=== PATIENT | female | born 2005 | race Caucasian/White ===

== ENCOUNTER 2023-07-26 14:59 | Outpatient (REF) | payer BC, SELFPAY | END 2023-07-26 15:00 | disposition home or self-care (01) | LOC: HO.MRI 14:59 | PROVIDERS: Visit Provider Family Medicine Sports Medicine | DX: S62.502D Fracture of unspecified phalanx of left thumb, subsequent encounter for fracture with routine healing (principal) | CPT/HCPCS: 73218 ==

== ENCOUNTER 2023-09-30 15:03 | Outpatient (REF) | payer BC, OTHER, SELFPAY ==
--- NOTE | ~2023-09-30 | MR_ITS ---
EXAMINATION: MR ANKLE WITHOUT CONTRAST, LEFT CLINICAL INFORMATION: Left ankle pain. COMPARISON: None available. TECHNIQUE: MRI of the ankle was performed using routine sequences on a high-field scanner. FINDINGS: ACHILLES TENDON: Normal. OTHER TENDONS: Intact. Peroneal tendons are probably situated at the lateral malleolus without subluxation. Superior peroneal retinaculum appears intact. No tenosynovitis. LIGAMENTS: The anterior talofibular ligament appears relatively diminutive, potentially the result of an old sprain. No tears. The posterior talofibular ligament is intact. Normal calcaneofibular ligament. Normal anterior and posterior tibiofibular ligament. The deltoid and spring ligaments are intact. BONE AND ARTICULAR CARTILAGE: Normal marrow signal. Cartilage is well preserved. No talar osteochondral lesions. JOINT FLUID AND SOFT TISSUES: No joint effusion. Subcutaneous soft tissues are normal. PLANTAR FASCIA: Normal. SINUS TARSI AND TARSAL TUNNEL: Normal. MR/MR ankle LT wo con IMPRESSION: Diminutive anterior talofibular ligament, potentially the result of an old sprain. No tears. Otherwise normal MRI of the ankle.
== END 2023-09-30 15:04 | disposition home or self-care (01) ==
LOC: HO.MRI 15:03
PROVIDERS: Visit Provider Family Medicine Sports Medicine
DX: M25.572 Pain in left ankle and joints of left foot (principal)
CPT/HCPCS: 73721

== ENCOUNTER 2025-01-09 09:51 | Outpatient (REF) | payer OTHER, SELFPAY ==
--- NOTE | 2025-01-09 10:08 | EMG_ITS ---
Left tibial and peroneal motor studies were performed. Left superficial peroneal, sural, and median and lateral mixed plantar sensory studies were performed. Tibial H-reflex was obtained and paraspinal and some leg muscles were tested with a needle. IMPRESSION: Mild axonal sensory motor peripheral neuropathy. MD LUANN Lynn/ALFRED / [id number]
--- OUTSIDE RECORDS SUMMARY | 2025-01-09 11:28 | XMS_ITS ---
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 confirmed Problem Pes cavus (71153814) Pes cavus (Q66.7) Active confirmed Vital Signs Height 5'6 in 09/07/2023 Weight 135 lbs 09/07/2023 BMI 21.79 kg/m2 09/07/2023 BMI Percentile 34.99 % 09/07/2023 Encounters Encounter Location Date Provider Diagnosis [facility] [address] [place] [address] [place] [id number] 09/07/2023 AMILCAR HURST Left foot pain M79.672 ; Sinus tarsi syndrome, 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 extensory digitorum longus tendonitis. Plan: We discussed custom molded orthotics with a first ray cutout and a possible reverse Pool's Extension and a lateral wedge. We discussed surgery in the form of a calcaneal lateral slide osteotomy and a first ray dorsiflexory osteotomy. The patient is to decrease activities. The patient is to stretch as instructed. We discussed proper shoe gear. 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 09/07/2023 Metatarsalgia, left foot (ICD-10 - M77.42) 09/07/2023 Equinus contracture of ankle (ICD-10 - M24.573) 09/07/2023 Left ankle pain, unspecified chronicity (ICD-10 - M25.572) 09/07/2023 Other Radiographs: Three views of the Left Ankle weightbearing AP/Lat/Mortise were taken and reviewed with the patient: There is no sign of fracture to the Tibia There is no sign of fracture to the Fibula There is no sign of fracture to the Talus There is no sign of fracture to the Calcaneus There is no sign of fracture to the Navicula There is no sign of fracture to the Cuboid There is no sign of fracture to the Fifth Metatarsal Soft tissue is Within Normal Limits Normal bone density for age group Discussion: No sign of fracture or dislocation. on lateral view there is a significant increase in the calcaneal inclination angle. Plan Of Treatment Treatment Notes Assessment Notes Left foot pain Foot Pain: Care Inst ructions material was printed Sinus tarsi syndrome, left Assessment: Left Foot Pes Cavus leading to ankle pain, instability Sinus tarsi syndrom-we discussed a cortisone injection. extensory digitorum longus tendonitis. Plan: We discussed custom molded orthotics with a first ray cutout and a possible reverse Pool's Extension and a lateral wedge. We discussed surgery in the form of a calcaneal lateral slide osteotomy and a first ray dorsiflexory osteotomy. The patient is to decrease activities. The patient is to stretch as instructed. We discussed proper shoe gear. The patient is to follow up with her athletic training department/physical therapy for dry needling of the extendor digitorum longus. Other Radiographs: Three views of the Left Ankle weightbearing AP/Lat/Mortise were taken and reviewed with the patient: There is no sign of fracture to the Tibia There is no sign of fracture to the Fibula There is no sign of fracture to the Talus There is no sign of fracture to the Calcaneus There is no sign of fracture to the Navicula There is no sign of fracture to the Cuboid There is no sign of fracture to the Fifth Metatarsal Soft tissue is Within Normal Limits Normal bone density for age group Discussion: No sign of fracture or dislocation. on lateral view there is a significant increase in the calcaneal inclination angle. Next Appt Details Follow Up: prn, Reason: Progress Notes * Zoë FERNANDEZeDOB:2005 (19 yo M)Acc No.[id number]:09/07/2023 Progress Notes Patient:?Maria Isabel FERNANDEZ Provider:?Amilcar Hurst DPM :2005???Age:17 Y???Sex:Male Josue e:09/07/2023 Address:[address] [place], [place] [id number] Subjective: * Chief Complaints: * ???1. Ankle. * HPI: ???Constitutional:? Maria Isabel presents today with painful left foot and ankle. 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 She has a history of spraining her ankle, and she is currently in a cam walker. She is improving. * ROS:?General/Constitutional:?Overall health?Good ?.?Change in appetite?denies.?Fatigue?denies.?Headache?denies.?Weight gain?denies.?Weight loss?denies.?Allergy/Immunology:?Cough?denies.?Watery eyes?denies.?Wheezing?denies.?Ophthalmologic:?Blurry vision?denies.?Discharge?denies.?Dry eye?denies.?Eye Pain?denies.?ENT:?Blocked ear?denies.?Dry mouth?denies.?Ear pain?denies.?Respiratory:?Chest pain?denies.?Cough?denies.?Shortness of breath?denies.?Wheezing?denies.?Cardiovascular:?Chest pain?denies.?Chest pain with exertion?denies.?Dizziness?denies.?Gastrointestinal:?Abdominal pain?denies.?Decreased appetite?denies.?Genitourinary:?Abdominal pain/swelling?denies.?Blood in urine?denies.?Musculoskeletal:?Back problems?denies.?Admits?Swollen joints.?Patient reports eye pain and eye swelling. * Active Problem List M24.573 Equinus contracture of ankle Modified On:09/07/2023W/U Status:confirmed Q66.7 Pes cavus Modified On:09/07/2023W/U Status:confirmed * Medical History:?Medical His tory Verified. * Surgical History:?Denies Pas t Surgical History. * Hospitalization/Major Diagno stic Procedure:?Denies Past Hospitalization. * Family History:?Non-Contribu tory.? * Social History:?never smoked, doesn't drink, single. * Medications:?None * Allergies:?N.K.D.A. Objective: * Vitals:?Ht: 5'6 , Wt:135lbs, BMI:21.79Index, Ht-cm: 167.64 cm, Wt-k.23 kg, Ht %: 10.07 %, Wt %: 17.9 %, BMI %: 34.99 %. * Examination: ???General Examination: ???Left foot displays an increase in the medial longitudinal arch height with tenderness at the calcaneus, first metatarsal head and fifth metatarsal head. There is a plantarflexed first metatarsal. There is positive Equinus. There is no ecchymosis. There is no edema. The plantar fascia is taut. The calcaneus does not eric pass neutral. there is tenderness along the digitorum longus and at the sinus tarsi. PSYCHIATRIC Gen/Psych: Patient is alert and orientated to person; place and time Patient is able to recall recent and remote memories Patient's affect is normal CONSTITUTIONAL: GENERAL APPEARANCE: Well-developed and well nourished Patient is able to communicate in a normal quality voice CARDIOVASCULAR: LEFT LOWER EXTREMITY: Dorsalis Pedis artery left- palpable 2/4 Posterior Tibial artery left-palpable 2/4 Temperature is within normal limits. Capillary fill time is within normal limits Positive pedal hair RIGHT LOWER EXTREMITY: Dorsalis Pedis artery right- palpable 2/4 Posterior Tibial artery right-palpable 2/4 Temperature is within normal limits. Capillary fill time is within normal limits Positive pedal hair NEUROLOGICAL: The patient has normal judgement and insight LEFT LOWER EXTREMITY: Protective sensation grossly intact left foot Proprioception is intact 5/5 muscle strength in all 4 quadrants left foot RIGHT LOWER EXTREMITY: Protective sensation grossly intact right foot Proprioception is intact grossly 5/5 muscle strength in all 4 quadrants right foot DERMATOLOGICAL: LEFT LOWER EXTREMITY: Color, texture and turgor is within normal limits RIGHT LOWER EXTREMITY: Color, texture and turgor is within normal limits. Assessment: * Assessment: 1.?Sinus tarsi syndrome, lef t - M25.572 (Primary)???2.?Left foot pain - M79.672???3.?Metatarsalgia, left foot - M77.42???4.?Equinus contracture of ankle - M24.573???5.?Left ankle pain, unspecified chronicity - M25.572??? Plan: * Treatment: 2.?Left foot pain? Notes: Foot Pain: Care Instructions material was printed?? 3.?Others? Notes:Radiographs: Threeviews of the Left Ankle weightbearing AP/Lat/Mortise were taken and reviewedwith the patient: There is no sign of fracture to the Tibia There is no sign of fracture to the Fibula There is no sign of fracture to the Talus There is no sign of fracture to the Calcaneus There is no sign of fracture to the Navicula There is no sign of fracture to the Cuboid There is no sign of fracture to the Fifth Metatarsal Soft tissue is Within Normal Limits Normal bone density for age group Discussion:No sign of fracture or dislocation. on lateral view there is a significant increase in the calcaneal inclination angle. ?? * Procedure Codes:?57749 ankle x-rays 3 views, Modifiers: lt * Follow Up:?prn * Billing Information: * Visit Code:? 79999 Initial visit detailed. * Procedure Codes:? 54425 ankle x-rays 3 views. Modifiers: lt * Electronic signature of HORACIO Harman HURST DPM on 01/09/2025 at 11:28 AM EDT Sign off status: Pending * Provider:?Amilcar Hurst DPM Date:?2022 Generated for Kaiden mcclellan/Xiomy/eTransmitting on:?01/09/2025 11:28 AM EDT History and Physical Notes * Examination Category Sub-Category Detail Notes Category Not es General Examination Left foot displays an increase in the medial longitudinal arch height with tenderness at the calcaneus, first metatarsal head and fifth metatarsal head. There is a plantarflexed first metatarsal. There is positive Equinus. There is no ecchymosis. There is no edema. The plantar fascia is taut. The calcaneus does not eric pass neutral. there is tenderness along the digitorum longus and at the sinus tarsi. PSYCHIATRIC Gen/Psych: Patient is alert and orientated to person; place and time Patient is able to recall recent and remote memories Patient's affect is normal CONSTITUTIONAL: GENERAL APPEARANCE: Well-developed and well nourished Patient is able to communicate in a normal quality voice CARDIOVASCULAR: LEFT LOWER EXTREMITY: Dorsalis Pedis artery left- palpable 2/4 Posterior Tibial artery left-palpable 2/4 Temperature is within normal limits. Capillary fill time is within normal limits Positive pedal hair RIGHT LOWER EXTREMITY: Dorsalis Pedis artery right- palpable 2/4 Posterior Tibial artery right-palpable 2/4 Temperature is within normal limits. Capillary fill time is within normal limits Positive pedal hair NEUROLOGICAL: The patient has normal judgement and insight LEFT LOWER EXTREMITY: Protective sensation grossly intact left foot Proprioception is intact 5/5 muscle strength in all 4 quadrants left foot RIGHT LOWER EXTREMITY: Protective sensation grossly intact right foot Proprioception is intact grossly 5/5 muscle strength in all 4 quadrants right foot DERMATOLOGICAL: LEFT LOWER EXTREMITY: Color, texture and turgor is within normal limits RIGHT LOWER EXTREMITY: Color, texture and turgor is within normal limits
--- OUTSIDE RECORDS SUMMARY | 2025-01-09 11:28 | XMS_ITS | Encounter Summary ---
Author Organization [facility] Address [address] [facility] [place] [address] Care Team Providers Care Rib Cloth Knitter Name Role Phone Indio Gray DO Primary Care Provide r Encounter Details Date Type Department Care Team (Late st Contact Info) Description 02/04/2024 Orders Only [facility] [address] [facility] [place] [id number] Tae Calderon PA [address] [place] [address] Social History Tobacco Use Types Packs/Day Years Used Date Smoking Tobacco: Never Smokeless Tobacco: Never Alcohol Use Standard Drinks/Week Comments Never 0 (1 standard drink = 0.6 oz pur e alcohol) Comments No Sex and Gender Information Value Date Recorded Sex Assigned at Not on file Legal Sex Female 1:00 PM EDT Gender Identity Not on file Sexual Orientation Not on file documented as of this encounter Plan of Treatment Not on file documented as of this encounter Visit Diagnoses Not on filedocumented in this encounter Care Teams Rib Cloth Knitter Relationship Specialty Start Date End Date Indio Gray DO [address] [place] [id number] PCP - General Pediatrics 01/14/21 documented as of this encounter
--- OUTSIDE RECORDS SUMMARY | 2025-01-09 11:28 | XMS_ITS | Clinical Summary ---
Author Organization [facility] Address [address] [place] [address] Care Team Providers Care Shell Press Operator Name Role Phone Ranjit Grayir Primary Care Provide r Allergies No known active allergies Medications ondansetron (Zofran) 4 mg tabletIndications:A ftercare following surgery of the musculoskeletal system Take 1 tablet (4 mg total) by mouth every 6 (six) hours if needed for nausea or vomiting for up to 20 doses. 20 tablet 4 Active apixaban (Eliquis) 2.5 mg tablet Take 1 tablet (2.5 mg total) by mouth 2 (two) times a day. 60 tablet 4 Active Active Problems Problem Noted Date Diagnosed Date Aftercare following surgery of the musculoskelet al system 04/18/2024 Resolved Problems Problem Noted Date Diagnosed Date Resolved Date Left ankle instability 03/06/202404/18 Encounters Date Type Department Care Team Description 10/30/2024 8:30 AM EST Office Visit [facility] in affiliation [place] [id number] Preston Lucas DPM Neuritis of left lower extremity (Primary Dx) from Last 3 Months Immunizations Immunization Administration Dates Next Due DTaP 03/04/2009, 5,05/30/2004,03/14,01/14/2004 HPV, 9-Valent Vaccine 05/25/2018 HPV, Quadrivalent 01/09/2017 Hep A, 2 Dose 05/25/2018 Hepatitis A, Adult 01/09/2017 Hepatitis B 08/25/2004,2003,2003 HiB 04/10/2005, 4,03/14/2004,01/13 IPV 03/04/2009, 5,03/11/2004,01/13 Influenza Injectable Quadriv alent, Preservative Free 09/09/2021,08/24/2020 Influenza, Unspecified 09/28/2019 MMR 11/14/2007,11/11/2004 Meningococcal B Vaccine, Ful ly Recombinant 04/13/2022 Meningococcal Conjugate 04/13/2022,05/20/2015 Pfizer SARS-CoV-2 Vaccination 02/14/2021, 021 Pneumococcal Conjugate 13-Valent 005,05/30/2004,03/14/2004,01/13 Tdap 05/20/2015 Varicella 11/14/2007,11/11/2004 Social History Tobacco Use Types Packs/Day Years Used Date Smoking Tobacco: Never Smokeless Tobacco: Never Tobacco Cessation:Counseling Given: Not Answered Alcohol Use Standard Drinks/Week Comments Never 0 (1 standard drink = 0.6 oz pur e alcohol) Comments No Sex and Gender Information Value Date Recorded Sex Assigned at Not on file Legal Sex Female 1:00 PM EDT Gender Identity Not on file Sexual Orientation Not on file Last Filed Vital Signs Vital Sign Reading Time Taken Comments Blood Pressure 115/74 02/04/2024 3:55 PM EDT Pulse 85 02/04/2024 4:00 PM EDT Temperature 36.8 ??C (98.2 ??F) 02/04/2024 3:35 PM ED T Respiratory Rate 16 02/04/2024 3:55 PM EDT Oxygen Saturation 96% 02/04/2024 4:00 PM EDT Inhaled Oxygen Concentration - - Weight 69.3 kg (152 lb 12.8 oz) 024 12:30 PM EDT Height 170.2 cm (5' 7 ) 02/04/2024 12:3 0 PM EDT Body Mass Index 23.93 02/04/2024 12:30 PM EDT Plan of Treatment Health Maintenance Due Date Last Done Comments Depression Screening 2015 HPV Vaccines (2 - 2-dose series) 07/12/2017 01/09/2017 COVID-19 Vaccine ( season) 2024 11/12/2021, 02/14/2021, 01/24/2021 Influenza Vaccine (#1) 2024 , 08/24/2020, 09/28/2019 DTaP,Tdap,and Td Vaccines (7 - Td or Tdap) 05/20/2025 05/20/2015, 03/04/2009, 04/12/2005, Additional history exists RSV Vaccines (1 - 1-dose 75+ series) 2078 Hepatitis B Vaccines Completed 08/25/2004, 2003, 2003 HIB Vaccines Completed 04/10/2005, 12/2003, 03/14/2004, Additional history exists Pneumococcal Vaccine Completed 04/10/2005, 05/30/2004, 03/14/2004, Additional history exists MMR Vaccines Completed 11/14/2007, 11/11/2004 Varicella Vaccines Completed 11/14/2007, 11/11/2004 IPV Vaccines Completed 03/04/2009, 03/19, 03/11/2004, Additional history exists Hepatitis A Vaccines Completed 05/25/2018, 01/09/2017, 01/09/2017 Meningococcal Vaccine Aged Out 04/13/2022, 015 No longer eligible based on patient's age to complete this topic Medical Devices Implanted Type Area Bark Peeler Device Identifier Shelf Expiration Date Model / Serial / Lot [place] Suture Arthroscopy Swivelock Latex Free Biocomposite Vented Closed Eyelet Sterile 15.8 X 3.5mm - [id number] Implanted:Qty: 2 on 02/04/2024 by Preston Lucas DPM at [facility] Left: Ankle ARTHREX 12/15/2025 [id number] / / [id number] Insurance UNIDENTIFIED INS UNIDENTIFIED INS Care Teams Shell Press Operator Relationship Specialty Start Date End Date Indio Gray DO [address] [place] [id number] PCP - General Pediatrics 01/14/21
--- OUTSIDE RECORDS SUMMARY | 2025-01-09 11:29 | XMS_ITS | Patient Health Record ---
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
== END 2025-01-09 09:52 | disposition home or self-care (01) ==
LOC: HO.NEURO 09:51
PROVIDERS: Visit Provider Family Medicine
DX: M79.662 Pain in left lower leg (principal)
CPT/HCPCS: 95886; 95910

== ENCOUNTER 2025-06-24 19:02 | Outpatient (REF) | payer BC, OTHER, SELFPAY ==
--- OUTSIDE RECORDS SUMMARY | 2023-06-28 10:33 | XMS_ITS | Continuity of Care Document ---
Author Organization [facility] Address [address] [facility] [address] [place] [address] Phone Care Team Providers Care Slot Machine Mechanic Name Role Phone Jorge Gonzalez PT Unavailable Unavailable Procedures Procedure Date Therapeutic Activities Neuromuscular Re-Ed Therapeutic Exercise Manual Therapy Therapeutic Activities Neuromuscular Re-Ed Therapeutic Exercise Manual Therapy Therapeutic Activities Neuromuscular Re-Ed Therapeutic Exercise Manual Therapy Advance Directives Directive Yes / No Effective Date File Name No Information Encounters Encounter Description Practice Location Reason(s) For Visit Diagnoses Date Provider Providers Copied on Encounter [facility], [address] [address], [place], [place], [id number], tel:[phone] No Information 3 Vivianawais Patel. . Referring Provider: Juancho Overton, [address] [place], [address]. tel:[phone] [facility], [address], [id number], tel:[phone] No Information 3 Postans Bg. . Referring Provider: Juancho Overton, [address] [place], [address]. tel:[phone] [facility], [address] [address], [place], [place], [id number], tel:[phone] No Information 3 Postans Bg. . Referring Provider: Juancho Overton, [address] [place], [address]. tel:[phone] [facility], [address], [place], [place], [id number], tel:[phone] No Information 3 Postans Bg. . Referring Provider: Juancho Overton, [address] [place], [address]. tel:[phone] Family History Family Member Type Diagnosis Age At Onset No Information Payers Payer name Insurance type Covered democrat ID Authorisha nair(s) [facility] [id number] Social History Type Description Quantity Date Captured [...]
--- NOTE | ~2025-06-24 | MR_ITS ---
CLINICAL HISTORY: pain in left lower leg MR left tibia-fibula without gadolinium Comparison: MR/SR - MR ANKLE WITHOUT IV CONTRAST LEFT - 09/30/23 15:37 EST Findings: No acute fractures. No pathologic bone lesions. No ankle joint effusion. No tears of the visualized patellar, flexor, extensor, or peroneal tendons. No disruption of the Achilles tendon. IMPRESSION: No acute findings. This document has been electronically signed by: Sonja Hahn MD on 06/24/2025 20:31:34
--- OUTSIDE RECORDS SUMMARY | 2025-06-24 19:05 | XMS_ITS | Encounter Summary ---
Author Organization [facility] Address [address] [place] [address] Phone Care Team Providers Care Top Lift Cutter Name Role Phone Juancho Overton DO Primary Care Provider [phone] Reason for Referral * MRI/CAT Scan - Closed Specialty Diagnoses / Procedures Referred By Abhishek shafer Referred To Contact Radiology Diagnoses Pain, joint, ankle and foot, left Procedures MRI Ankle (Left) Juancho Overton DO [address] [place] [address] Phone: tel: fax: mailto: Referral ID Status Reason Start Date Expiration Date Visits Re quested Visits Authorized [id number] Closed 07/24/2022 07/24/2023 1 1 Encounter Details Date Type Department Care Team (Late st Contact Info) Description 07/24/2022 Transcribe Orders Virtual Department [address] [place] [address] Juancho Overton DO [address] [place] [address] [email or web address] Pain, joint, ankle and foot, left (Primary Dx) Social History Tobacco Use Types Packs/Day Years Used Date Smoking Tobacco: Never Assessed Comments Unknown Sex and Gender Information Value Date Recorded Sex Assigned at Female 07/30/2022 7:25 AM EDT Legal Sex Female 12:43 PM EDT Gender Identity Female 07/30/2022 7:25 AM EDT Sexual Orientation Straight 07/30/2022 7: 25 AM EDT documented as of this encounter Plan of Treatment Not on file documented as of this encounter Results * MRI ANKLE WITHOUT CONTRAST (LEFT) (07/30/2022 8:48 AM EDT) Anatomical Region Laterality Modality Ankle Left Magnetic Resonan ce 07/30/2022 12:3 2 PM EDT Impressions 07/30/2022 12:59 PM EDT Foci of marrow edema in the dorsal-lateral aspect of the cuboid and also in the calcaneus, along the posterior aspect of the posterior subtalar facet. No discrete fracture lines. These findings could represent contusions. No acute ligamentous injury. Narrative 07/30/2022 12:59 PM EDT MRI ANKLE WITHOUT CONTRAST (LEFT) TECHNIQUE: Multi-sequence, multi-planar MRI of the ankle without intravenous contrast. COMPARISON: None FINDINGS: Lateral ligaments: Normal. Anterior talofibular, calcaneofibular, and posterior talofibular ligaments are intact. Syndesmotic ligaments are intact. Medial ligaments: Normal. Deltoid complex and spring ligaments are intact. Plantar fascia: Normal. Peroneal tendons: Normal. Peroneus longus and brevis are intact. Flexor tendons: Normal. Posterior tibialis, flexor digitorum longus, and flexor hallucis longus are intact. Extensor tendons: Normal. Anterior tibialis, extensor hallucis longus, and extensor digitorum longus are intact. Achilles tendon: Normal. Bone: Foci of marrow edema in the dorsal-lateral aspect of the cuboid and also in the calcaneus, along the posterior aspect of the posterior subtalar facet. No discrete fracture lines. No marrow replacing lesion or osteonecrosis. Joints: Normal. No effusion or synovitis. No focal cartilage defect or subchondral edema. Procedure Note Pierre Porter MD - 07/30/2022 MRI ANKLE WITHOUT CONTRAST (LEFT) TECHNIQUE: Multi-sequence, multi-planar MRI of the ankle withoutintravenous contrast. COMPARISON: None FINDINGS: Lateral ligaments: Normal. Anterior talofibular, calcaneofibular, andposterior talofibular ligaments are intact. Syndesmotic ligaments areintact. Medial ligaments: Normal. Deltoid complex and spring ligaments areintact. Plantar fascia: Normal. Peroneal tendons: Normal. Peroneus longus and brevis are intact. Flexor tendons: Normal. Posterior tibialis, flexor digitorum longus, andflexor hallucis longus are intact. Extensor tendons: Normal. Anterior tibialis, extensor hallucis longus, andextensor digitorum longus are intact. Achilles tendon: Normal. Bone: Foci of marrow edema in the dorsal-lateral aspect of the cuboid andalso in the calcaneus, along the posterior aspect of the posteriorsubtalar facet. No discrete fracture lines. No marrow replacing lesion orosteonecrosis. Joints: Normal. No effusion or synovitis. No focal cartilage defect orsubchondral edema. IMPRESSION: Foci of marrow edema in the dorsal-lateral aspect of the cuboid and alsoin the calcaneus, along the posterior aspect of the posterior subtalarfacet. No discrete fracture lines. These findings could representcontusions. No acute ligamentous injury. Juancho Overton DO [facility] MR EXTREMITY Final Result documented in this encounter Visit Diagnoses Diagnosis Pain, joint, ankle and foot, left- Primary Pain, joint, ankle and foot, left documented in this encounter Care Teams Top Lift Cutter Relationship Specialty Start Date End Date Juancho Overton DO [address] [place] [address] [email or web address] PCP - General Family Medicine 07/24/22 documented as of this encounter Additional Source Comments The information contained in this document represents components of the legal health record. It is not the complete legal health record.[facility]
--- OUTSIDE RECORDS SUMMARY | 2025-06-24 19:05 | XMS_ITS | Encounter Summary ---
Author Organization [facility] Address [address] [facility] [address] [place] [address] Phone Care Team Providers Care International Accounting Manager Name Role Phone Juancho Overton DO Primary Care Provider [phone] Encounter Details Date Type Department Care Team (Late st Contact Info) Description 07/24/2022 Procedure Pass [address] [place] [address] Social History Tobacco Use Types Packs/Day Years [...] on filedocumented in this encounter Care Teams International Accounting Manager Relationship Specialty Start Date End Date Juancho Overton DO [address] [place] [address] [place] [address] [email or web address] PCP - General Family Medicine 07/24/22 documented as of this encounter Additional Source Comments The information contained in this document represents components of the legal health record. It is not the complete legal health record.[facility]
--- OUTSIDE RECORDS SUMMARY | 2025-06-24 19:05 | XMS_ITS | Clinical Summary ---
Author Organization [facility] Address [address] [place] [address] Care Team Providers Care Armored Machine Operator Name Role Phone Unknown, [place] Primary Care Provider Unavailab le Allergies Active Allergy Reactions Criticality Noted Date Comments Minocycline Swelling 05/22/2025 Medications spironolactone (ALDACTONE) 50 MG tablet Take 1 tablet by mouth daily. 05/18/2025 Active Active Problems No known active problems Encounters Date Type Department Care Team Description 05/22/2025 9:23 AM EDT - 05/22/2025 11:59 PM EDT Hospital Encounter [facility] [address], [address] [place] [address] Lizette Cole MD Left leg pain Discharge Disposition: Home or Self Care 05/22/2025 8:30 AM EDT Office Visit [facility] Medicine, [facility] [address], [address] [place] [address] Lizette Cole MD Left leg pain (Primary Dx) 04/05/2025 Orders Only Radiology, [facility] - Nuclear Medicine [address] [place] [id number] Interface, User from Last 3 Months Social History Tobacco Use Types Packs/Day Years Used Date Smoking Tobacco: Never Smokeless Tobacco: Never Tobacco Cessation:Counseling Given: Not Answered Comments Unknown Sex and Gender Information Value Date Recorded Sex Assigned at Not on file Legal Sex Female 10:00 AM EDT Gender Identity Not on file Sexual Orientation Not on file Plan of Treatment Health Maintenance Due Date Last Done Comments Varicella (1 of 2 - 13+ 2-dose series) 2016 SARS-COV-2 (COVID-19) Vaccination ( season) 2024 11/12/2021, 02/14/2021, 01/24/2021 DTap/Tdap/Td (6 - Td or Tdap) 05/20/2025 05/20/2015, 03/04/2009, 05/30/2004, Additional history exists Tetanus Vaccination Adult (6 - Td or Tdap) 05/20/2025 05/20/2015, 03/04/2009, 05/30/2004, Additional history exists Influenza Vaccination (#1) 07/18/202509/09, 08/24/2020, 09/28/2019 Hepatitis B Completed 08/25/2004, 11/19, 2003 Haemophilus Influenza Type B (Hib) Completed 04/10/2005, 05/20/2004, 03/14/2004, Additional history exists Pneumococcal Vaccine Completed 04/10/2005, 05/30/2004, 01/14/2004 MMR Vaccination Completed 11/14/2007, 11/11/2004 Polio Vaccination Completed 03/04/2009, , 03/11/2004, Additional history exists HPV (Human Papilloma Virus) Vaccine Completed 05/25/2018, 01/09/2017 Hepatitis A Completed 05/25/2018, 01/09/2017 Meningococcal Conjugate Valent 4 (MCV4) Vaccine Completed 04/13/2022, 05/20/2015 Rotavirus Aged Out No longer eligi ble based on patient's age to complete this topic Procedures Procedure Name Priority Date/Time Associated Diagnosis Comments XR TIBIA FIBULA 2 VWS LT Routine 05/22/2025 9:30 AM EDT Left leg pain from Last 3 Months Results * XR TIBIA FIBULA 2 VWS LT (05/22/2025 9:30 AM EDT) Anatomical Region Laterality Modality L TIB FIB Radiographic Claribel ging Impressions 05/22/2025 10:36 AM EDT Normal left leg radiographs. Jacob Hemphill M.D. Attending Physician, Radiology Narrative 05/22/2025 10:36 AM EDT EXAMINATION: XR TIBIA FIBULA 2 VWS LT performed on 05/22/2025 COMPARISON: None. CLINICAL INDICATION: ; L leg pain; FINDINGS: AP and lateral views of the left leg demonstrate no osseous, joint or soft tissue abnormality. Procedure Note Jacob Hemphill MD - 05/22/2025 EXAMINATION: XR TIBIA FIBULA 2 VWS LT performed on 05/22/2025 COMPARISON: None. CLINICAL INDICATION: ; L leg pain; FINDINGS: AP and lateral views of the left leg demonstrate no osseous, joint or softtissue abnormality. IMPRESSION: Normal left leg radiographs. Jacob Hemphill M.D. Attending Physician, Radiology us Lizette Cole MD [facility] ORDERABLE S Final Result from Last 3 Months Care Teams Armored Machine Operator Relationship Specialty Start Date End Date Unknown, [place] X PCP - General 03/30/25
--- OUTSIDE RECORDS SUMMARY | 2025-06-24 19:05 | XMS_ITS | Encounter Summary ---
Author Organization [facility] Address [address] [place] [address] Care Team Providers Care Folder Seamer Name Role Phone Indio Gray DO Primary Care Provide r Encounter Details Date Type Department Care Team (Late st Contact Info) Description 02/04/2024 Orders Only [facility] [address] [facility] [place] [id number] Tae Calderon PA [address] [place] [address] Social History Tobacco Use Types Packs/Day Years Used Date Smoking Tobacco: Never Smokeless Tobacco: Never Alcohol Use Standard Drinks/Week Comments Never 0 (1 standard drink = 0.6 oz pur e alcohol) Comments No Sex and Gender Information Value Date Recorded Sex Assigned at Female 03/23/2025 8:36 AM EDT Legal Sex Female 1:00 PM EDT Gender Identity Female 03/23/2025 8:36 AM EDT Sexual Orientation Not on file documented as of this encounter Plan of Treatment Not on file documented as of this encounter Visit Diagnoses Not on filedocumented in this encounter Care Teams Folder Seamer Relationship Specialty Start Date End Date Indio Gray DO [address] [place] [address] PCP - General Pediatrics 01/14/21 documented as of this encounter
--- OUTSIDE RECORDS SUMMARY | 2025-06-24 19:05 | XMS_ITS | Clinical Summary ---
Author Organization [facility] Address [address] [place] [address] Phone Care Team Providers Care Order Administrator Name Role Phone Juancho Overton Primary Care Provider [phone] Medications spironolactone (ALDACTONE) 100 MG tablet Take 1 tablet by mouth every morning. 09/11/2023 Active tretinoin (RETIN-A) 0.05 % cream 04/14/2021 Active tobramycin-dexA METHasone (TOBRADEX) ophthalmic suspension INSTILL 1 DROP INTO BOTH EYES 4 TIMES A DAY DIRECTED 10/05/2023 Active Social History Tobacco Use Types Packs/Day Years Used Date Smoking Tobacco: Never Assessed Education Answer Date Recorded Are you interested in more education? Not on kashmir e 02/13/2023 Are you concerned about learning? Not on file 02/13/2023 No 02/13/2023 No 02/13/2023 Digital Access Answer Date Recorded No 03/16/2023 No 03/16/2023 Reliable internet access at home? Not on file 03/16/2023 Device with a working camera? Not on file Comments Unknown Sex and Gender Information Value Date Recorded Sex Assigned at Female 07/30/2022 7:25 AM EDT Legal Sex Female 12:43 PM EDT Gender Identity Female 07/30/2022 7:25 AM EDT Sexual Orientation Straight 07/30/2022 7: 25 AM EDT Last Filed Vital Signs Vital Sign Reading Time Taken Comments Blood Pressure - - Pulse - - Temperature - - Respiratory Rate - - Oxygen Saturation - - Inhaled Oxygen Concentration - - Weight 61.2 kg (135 lb) 07/30/2022 7:48 AM EDT Height 167.6 cm (5' 6 ) 07/30/2022 7:48 AM EDT Body Mass Index 21.79 07/30/2022 7:48 AM EDT Plan of Treatment Health Maintenance Due Date Last Done Comments POTASSIUM LEVEL 2003 DEPRESSION SCREENING 2015 SMOKING Hx and SMOKELESS TOBACCO SCREENING 2016 HEPATITIS A VACCINES (2 of 2 - 2-dose series) 07/12/2017 01/09/2017 HPV VACCINES (1 - 3-dose series) 2018 CHLAMYDIA SCREENING 2019 MENINGOCOCCAL VACCINES (B) (1 of 2 - Standard) 2019 ADOLESCENT UNIVERSAL LIPID SCREENING 2020 HEPATITIS C SCREENING 2021 HIV ONE-TIME SCREENING (18-65 YEARS) 2021 PAP SMEAR 2024 INFLUENZA VACCINE (#1) 2025 08/27/2022 Adult Td,Tdap Booster 05/20/2025 05/20/2015 COMBINED DTaP,Tdap,Td (7 - Td or Tdap) 05/20/2025 05/20/2015, 03/04/2009, 04/12/2005, Additional history exists COVID-19 VACCINE (2024- season) 2025 08/27/2022 MMR VACCINES Completed 11/14/2007, 11/11/2004 HIB VACCINES Aged Out No longer eligi ble based on patient's age to complete this topic MENINGOCOCCAL VACCINES (ACWY) Aged Out No longer eligible based on patient's age to complete this topic PNEUMOCOCCAL VACCINES (0-49 years) Aged Out No longer eligible based on patient's age to complete this topic Medical Devices Not on file Insurance GENERIC COMMERCIAL [place] [id number] [facility] PPO Member Subscriber Plan / Payer (Ef fective 2023-Present) Name:Maria Isabel Fernandez Member ID:Not on file Relation to Subscriber:Child Name:YOLA FERNANDEZ Subscriber ID:[id number] Date of :1974 Address: [address] [address] [place] [address] Payer ID:[id number] (NAIC) Group ID:Not on file Type:PPO Address: [address] [employer]ERCIAL [place] [id number] [facility] PPO Member Subscriber Plan / Payer (Ef fective 2023-Present) Name:Maria Isabel Fernandez Member ID:Not on file Relation to Subscriber:Child Name:YOLA FERNANDEZ Subscriber ID:[id number] Date of :1974 Address: [address] [address] [place] [address] Payer ID:[id number] (NAIC) Group ID:Not on file Type:PPO Address: [address] EPO GENERIC [employer]ERCIAL [place] [id number] [facility] PPO Member Subscriber Plan / Payer (Ef fective 2023-Present) Name:Maria Isabel Fernandez Member ID:Not on file Relation to Subscriber:Child Name:YOLA Mora JIM Subscriber ID:[id number] Date of :1974 Address: [address] [address] [place] [address] Payer ID:[id number] (NAIC) Group ID:Not on file Type:PPO Address: [address] [place] [id number] [employer] GENERIC [employer]CIAL [place] [address] [facility] PPO Member Subscriber Plan / Payer (Ef fective 2023-Present) Name:Maria Isabel Fernandez Member ID:Not on file Relation to Subscriber:Child Name:YOLA FERNANDEZ Subscriber ID:[id number] Date of :1974 Address: [address] [address] [place] [address] Payer ID:[id number] (NAIC) Group ID:Not on file Type:PPO Address: [address] [place] [id number] [employer] GENER[employer]CIAL [facility] PPO Member Subscriber Plan / Payer (Ef fective 2023-Present) Name:Don Fernandezabelle Member ID:Not on file Relation to Subscriber:Child Name:YOLA HUERTASKEYANNAGARRICK Subscriber ID:[id number] Date of :1974 Address: [address] [address] [place] [address] Payer ID:[id number] (NAIC) Group ID:Not on file Type:PPO Address: [address] EPO [employer] [facility] PPO Member Subscriber Plan / Payer (Ef fective 2023-Present) Name:Maria Isabel Fernandez Member ID:Not on file Relation to Subscriber:Child Name:YOLA Mora JIM Subscriber ID:[id number] Date of :1974 Address: [address] [address] [place] [address] Payer ID:[id number] (NAIC) Group ID:Not on file Type:PPO Address: [address] [place] [id number] Care Teams Order Administrator Relationship Specialty Start Date End Date Juancho Overton DO [address] [place] [address] PCP - General Family Medicine 07/24/22 Additional Source Comments The information contained in this document represents components of the legal health record. It is not the complete legal health record.[facility]
--- OUTSIDE RECORDS SUMMARY | 2025-06-24 19:05 | XMS_ITS | Referral Summary ---
Author Organization [facility] Address [address] [place] [address] Care Team Providers Care Aligning Checker Name Role Phone Unknown, [place] Primary Care Provider Unavailab le Encounters Date Type Department Care Team Description 05/22/2025 9:23 AM EDT - 05/22/2025 11:59 PM EDT Hospital Encounter [facility] [address], [address] [place] [address] Lizette Cole MD Left leg pain Discharge Disposition: Home or Self Care 05/22/2025 8:30 AM EDT Office Visit [facility] [address], [address] [place] [address] Lizette Cole MD Left leg pain (Primary Dx) 04/05/2025 Orders Only Radiology, [facility] - Nuclear Medicine [address] [place] [id number] Interface, User from Last 3 Months Allergies Active Allergy Reactions Criticality Noted Date Comments Minocycline Swelling 05/22/2025 Medications spironolactone (ALDACTONE) 50 MG tablet Take 1 tablet by mouth daily. 05/18/2025 Active Active Problems No known active problems Social History Tobacco Use Types Packs/Day Years Used Date Smoking Tobacco: Never Smokeless Tobacco: Never Tobacco Cessation:Counseling Given: Not Answered Comments Unknown Sex and Gender Information Value Date Recorded Sex Assigned at Not on file Legal Sex Female 10:00 AM EDT Gender Identity Not on file Sexual Orientation Not on file Plan of Treatment Not on file Procedures Procedure Name Priority Date/Time Associated Diagnosis [...] radiographs. Jacob Hemphill M.D. Attending Physician, Radiology Lizette [facility] ORDERABLE S Final Result from Last 3 Months Care Teams Aligning Checker Relationship Specialty Start Date End Date Unknown, [place] X PCP - General 03/30/25
--- OUTSIDE RECORDS SUMMARY | 2025-06-24 19:05 | XMS_ITS | Patient Health Record ---
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
--- OUTSIDE RECORDS SUMMARY | 2025-06-24 19:05 | XMS_ITS | Clinical Summary ---
Author Organization [facility] Address [address] [place] [address] Care Team Providers Care Aircraft Structure Mechanic Name Role Phone Marquita Jaffe MD Primary Care Provider Social History Tobacco Use Types Packs/Day Years Used Date Smoking Tobacco: Never Assessed Comments Unknown Sex and Gender Information Value Date Recorded Sex Assigned at Not on file Legal Sex Female 3:21 AM EDT Gender Identity Not on file Sexual Orientation Not on file Last Filed Vital Signs Vital Sign Reading Time Taken Comments Blood Pressure - - Pulse - - Temperature - - Respiratory Rate - - Oxygen Saturation - - Inhaled Oxygen Concentration - - Weight 55.2 kg (121 lb 12.8 oz) 10/26/2019 11:38 AM EST Weight Type: Actual; Height 165.1 cm (5' 5 ) 10/26/2019 11:3 8 AM EST Height Type: Actual; Body Mass Index 20.27 10/26/2019 11:38 AM EST Plan of Treatment Health Maintenance Due Date Last Done Comments MMR Vaccines (1 of 1 - [place] series) 2004 Depression Screening 2015 Varicella Vaccines (1 of 2 - 13+ 2-dose series) 2016 DTaP/Tdap/Td Vaccines (1 - Tdap) 2018 HPV Vaccines (1 - 3-dose series) 2018 Meningococcal B Vaccine (1 o f 2 - Standard) 2019 Hepatitis B Vaccines (1 of 3 - 19+ 3-dose series) 2022 Pap Test 2024 COVID-19 Vaccine (1 - 2023-2 5 season) 2025 Influenza Vaccine (#1) 2025 09/28/2019 Zoster Vaccines (1 of 2) 2053 HIB Vaccines Aged Out No longer eligi ble based on patient's age to complete this topic Hepatitis A Vaccines Aged Out No long er eligible based on patient's age to complete this topic IPV Vaccines Aged Out No longer eligi ble based on patient's age to complete this topic Meningococcal Vaccine Aged Out No [place] jose cruz eligible based on patient's age to complete this topic Pneumococcal Vaccine <49 Aged Out No longer eligible based on patient's age to complete this topic Rotavirus Vaccines Aged Out No longer eligible based on patient's age to complete this topic Care Teams Aircraft Structure Mechanic Relationship Specialty Start Date End Date Marquita Jaffe MD [facility] [address] [place] [address] PCP - General 08/25/21
--- OUTSIDE RECORDS SUMMARY | 2025-06-24 19:05 | XMS_ITS | Clinical Summary ---
Author Organization [facility] Address [address] [place] [address] Care Team Providers Care Route Delivery Driver Name Role Phone Indio Gray DO Primary Care Provide r Medications ondansetron (Zofran) 4 mg tabletIndications:A ftercare [...] Date Resolved Date Left ankle instability 03/06/202404/18 Immunizations Immunization Administration Dates Next Due DTaP [...] AM EDT Sexual Orientation Not on file Last Filed Vital Signs Vital Sign Reading Time Taken Comments Blood Pressure 115/74 02/04/2024 3:55 PM EDT Pulse 85 02/04/2024 4:00 PM EDT Temperature 36.8 C (98.2 F) 02/04/2024 3:35 PM EDT Respiratory Rate 16 02/04/2024 3:55 PM EDT [...] Vaccines (2 - 2-dose series) 07/12/2017 01/09/2017 Pap Smear 2024 DTaP,Tdap,and Td Vaccines (7 - Td or Tdap) 05/20/2025 05/20/2015, 03/04/2009, 04/12/2005, Additional history exists COVID-19 Vaccine (4 - 2024- season) 2025 11/12/2021, 02/14/2021, 01/24/2021 Influenza Vaccine (#1) 2025 , 08/24/2020, 09/28/2019 RSV Vaccines (1 - 1-dose 75+ series) [...] this topic Medical Devices Implanted Type Area Rig Builder Device Identifier Shelf Expiration Date Model / Serial / Lot Lane Suture Arthroscopy Swivelock Latex Free Biocomposite Vented Closed Eyelet Sterile 15.8 X 3.5mm - [id number] Implanted:Qty: 2 on 02/04/2024 by Preston Lucas DPM at [facility] Left: Ankle ARTHREX 12/15/2025 [id number] / / [id number] Insurance UNIDENTIFIED INS Care Teams Route Delivery Driver Relationship Specialty Start Date End Date Indio Gray DO [address] [place] [id number] PCP - General Pediatrics 01/14/21
== END 2025-06-24 19:03 | disposition home or self-care (01) ==
LOC: HO.MRI 19:02
PROVIDERS: Visit Provider Family Medicine
DX: M79.662 Pain in left lower leg (principal)
CPT/HCPCS: 73718

== ENCOUNTER → 2025-06-24 19:26 | Outpatient (BNV) | payer BC, OTHER, SELFPAY | PROVIDERS: Visit Provider Radiology Diagnostic Radiology | DX: M79.662 Pain in left lower leg (principal) | CPT/HCPCS: 73718 ==

== ENCOUNTER 2025-09-20 19:10 | Outpatient (REF) | payer BC, OTHER, SELFPAY ==
--- OUTSIDE RECORDS SUMMARY | 2023-06-28 09:33 | XMS_ITS | Continuity of Care Document ---
Author Organization [facility] Address [address] [facility] [address] [place] [address] Phone Care Team Providers Care Dobie Worker Name Role Phone Jorge Gonzalez PT Unavailable Unavailable Procedures Procedure Date Therapeutic Activities Neuromuscular Re-Ed Therapeutic Exercise Manual Therapy Therapeutic Activities Neuromuscular Re-Ed Therapeutic Exercise Manual Therapy Therapeutic Activities Neuromuscular Re-Ed Therapeutic Exercise Manual Therapy Advance Directives Directive Yes / No Effective Date File Name No Information Encounters Encounter Description Practice Location Reason(s) For Visit Diagnoses Date Provider Providers Copied on Encounter [facility], [address] [address], [place], [place], [id number], tel:[phone] No Information 3 Helmettaawais Patel. . Referring Provider: Juancho Overton, [address] [place], [address]. tel:[phone] [facility], [address], [id number], tel:[phone] No Information 3 Postans Bg. . Referring Provider: Juancho Overton, [address] [place], [address]. tel:[phone] [facility], [address] [address], [place], [place], [id number], tel:[phone] No Information 3 Postans Bg. . Referring Provider: Juancho Overton, [address] [place], [address]. tel:[phone] [facility], [address], [place], [place], [id number], tel:[phone] No Information 3 Postans Bg. . Referring Provider: Juancho Overton, [address] [place], [address]. tel:[phone] Family History Family Member Type Diagnosis Age At Onset No Information Payers Payer name Insurance type Covered libertarian ID Authorisha nair(s) [facility] [id number] Social History Type Description Quantity Date Captured Comments Sex Female Smoking Status No Information Chief Complaint And Reason For Visit No Information Reason For Referral Reason For Referral No Information History Of Present Illness Encounter Date Complaint History Of Prese nt Illness No Information Functional Status Date Functional Assessmen t No Information Instructions Date Instruction Additional Infor mation No Information Assessments Type Assessment Date No Information Patient Care Teams Name Effective Dates (start - stop) Status Members No Information
--- NOTE | ~2025-09-20 | MR_ITS ---
EXAMINATION: MR LUMBAR SPINE WITHOUT CONTRAST CLINICAL INFORMATION: Lower leg numbness. COMPARISON: None available. TECHNIQUE: MRI of the lumbar spine was obtained using routine sequences without contrast. FINDINGS: Last rib-bearing vertebra labeled T12. No bone marrow STIR signal abnormality. Normal alignment. Conus medullaris ends at inferior endplate of T12 with normal signal. T12-L1: Normal. L1-2: Normal. L2-3: Normal. L3-4: Normal L4-5: Broad-based disc bulging. No central spinal canal or neuroforamina stenosis. L5-S1: Broad-based disc bulging. Prominent epidural fat in a circumferential fashion. No neuroforamina stenosis. No prevertebral compartment hematoma, mass or fluid collection. MR/MR lumbar spine wo con IMPRESSION: Epidural lipomatosis at L5-S1. No herniated disc. Electronically signed by: Basil Perdomo MD 09/21/2025 06:42 AM [facility]
--- OUTSIDE RECORDS SUMMARY | 2025-09-20 22:25 | XMS_ITS | Clinical Summary ---
Author Organization [facility] Address [address] [place] [address] Care Team Providers Care Small Business Sales Representative Name Role Phone Marquita Jaffe MD Primary Care Provider [phone] Social History Tobacco Use Types Packs/Day Years [...] Pap Test 2024 COVID-19 Vaccine (1 - 2024-2 6 season) 2025 Influenza Vaccine (#1) 2025 09/28/2019 [...] age to complete this topic Care Teams Small Business Sales Representative Relationship Specialty Start Date End Date Marquita Jaffe MD [facility] [address] [place] [address] PCP - General 08/25/21
--- OUTSIDE RECORDS SUMMARY | 2025-09-20 22:25 | XMS_ITS ---
Author Name [facility] Organization Unknown Encounters Encounter Type Encounter Reason Primary Diagnosis Location Date Ambulatory Post-op [facility] 03/19/2025 Ambulatory Follow-up [facility] 10/30/2024 Ambulatory Follow-up [facility] 09/13/2024 Care Team Organization Name Specialty Phone Email Start Date End Da te Terminated: [employer] [facility] 07/12/2024
--- OUTSIDE RECORDS SUMMARY | 2025-09-20 22:25 | XMS_ITS | Clinical Summary ---
Author Organization [facility] Address [address] [place] [address] Care Team Providers Care Seismic Plotter Name Role Phone Unknown, [place] Primary Care Provider Unavailab le Allergies Active [...] of 2 - 13+ 2-dose series) 2016 DTap/Tdap/Td (6 - Td or Tdap) 05/20/2025 05/20/2015, 03/04/2009, 05/30/2004, Additional history exists Tetanus Vaccination Adult (6 - Td or Tdap) 05/20/2025 05/20/2015, 03/04/2009, 05/30/2004, Additional history exists SARS-COV-2 (COVID-19) Vaccination (2024- season) 2025 11/12/2021, 02/14/2021, 01/24/2021 Influenza Vaccination (#1) 07/18/202509/09, 08/24/2020, 09/28/2019 Hepatitis [...] age to complete this topic Care Teams Seismic Plotter Relationship Specialty Start Date End Date Unknown, [place] X PCP - General 03/30/25
--- OUTSIDE RECORDS SUMMARY | 2025-09-20 22:25 | XMS_ITS | Encounter Summary ---
Author Organization [facility] Address [address] [place] [phone] Phone Care Team Providers Care Wood Craftsman Name Role Phone Juancho Overton DO Primary Care Provider [phone] Reason for Referral * MRI/CAT Scan - Closed Specialty Diagnoses / Procedures Referred By Abhishek shafer Referred To Contact Radiology Diagnoses Pain, joint, ankle and foot, left Procedures MRI Ankle (Left) Juancho Overton DO [address] [place] [address] Phone: tel: fax: [email or web address] Referral ID Status Reason Start Date Expiration Date Visits Re quested Visits Authorized [id number] Closed 07/24/2022 07/24/2023 1 1 Encounter Details Date Type Department Care Team (Late st Contact Info) Description 07/24/2022 Transcribe Orders Virtual Department [address] [place] [address] Juancho Overton DO [address] [place] [address] [email or web address] Pain, joint, ankle and foot, left (Primary [...] No acute ligamentous injury. Juancho Overton DO [facility] Final Result documented in this encounter Visit Diagnoses Diagnosis Pain, joint, ankle and foot, left- Primary Pain, joint, ankle and foot, left documented in this encounter Care Teams Wood Craftsman Relationship Specialty Start Date End Date Juancho Overton DO [address] [place] [address] [email or web address] PCP - General Family Medicine 07/24/22 documented as of this encounter Additional Source Comments The information contained in this document represents components of the legal health record. It is not the complete legal health record.[facility]
--- OUTSIDE RECORDS SUMMARY | 2025-09-20 22:25 | XMS_ITS | Encounter Summary ---
Author Organization [facility] Address [address] [place] [address] Care Team Providers Care Commercial Sewing Instructor Name Role Phone Indio Gray DO Primary Care Provide r Encounter Details Date Type Department Care Team (Late st Contact Info) Description 02/04/2024 Orders Only [facility] [address] [facility] [place] [id number] Tae Calderon PA [address] [place] [address] Social History Tobacco Use Types Packs/Day Years [...] on filedocumented in this encounter Care Teams Commercial Sewing Instructor Relationship Specialty Start Date End Date Indio Gray DO [address] [place] [address] PCP - General Pediatrics 01/14/21 documented as of this encounter
--- OUTSIDE RECORDS SUMMARY | 2025-09-20 22:25 | XMS_ITS | Clinical Summary ---
Author Organization [facility] Address [address] [place] [address] Phone Care Team Providers Care Client Account Representative Name Role Phone Juancho Overton Primary Care Provider [phone] Medications spironolactone (ALDACTONE) 100 MG tablet Take [...] Devices Not on file Insurance GENERIC COMMERCIAL [place] [id number] [facility] HMO POS [employer] COMMERCIAL [place] [id number] [facility] HMO POS GENERIC COMMERCIAL [place] [id number] [facility] GENER[facility] [place] [id number] [facility] GENERIC COMM[facility] [place] [id number] [facility]IC [facility] POS Care Teams Client Account Representative Relationship Specialty Start Date End Date Juancho Overton DO [address] [place] [address] [email or web address] PCP - General Family Medicine 07/24/22 Additional Source Comments The information contained in this document represents components of the legal health record. It is not the complete legal health record.[facility]
--- OUTSIDE RECORDS SUMMARY | 2025-09-20 22:25 | XMS_ITS | Encounter Summary ---
Author Organization [facility] Address [address] [facility] [address] [place] [address] Phone Care Team Providers Care Hydraulics Engineer Name Role Phone Juancho Overton DO Primary Care Provider [phone] Encounter Details Date Type Department Care Team (Late st Contact Info) Description 07/24/2022 Procedure Pass [address] [place] [address] Social History Tobacco Use Types Packs/Day Years [...] on filedocumented in this encounter Care Teams Hydraulics Engineer Relationship Specialty Start Date End Date Juancho Overton DO [address] [place] [address] [place] [address] [email or web address] PCP - General Family Medicine 07/24/22 documented as of this encounter Additional Source Comments The information contained in this document represents components of the legal health record. It is not the complete legal health record.[facility]
--- OUTSIDE RECORDS SUMMARY | 2025-09-20 22:25 | XMS_ITS | Patient Health Record ---
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
--- OUTSIDE RECORDS SUMMARY | 2025-09-20 22:25 | XMS_ITS | Clinical Summary ---
Author Organization [facility] Address [address] [place] [address] Care Team Providers Care Communications Equipment Operator Name Role Phone Indio Gray DO Primary [...] Vaccines (2 - 2-dose series) 07/12/2017 01/09/2017 Pneumococcal Vaccine (1 of 1 - PPSV23, PCV20, or PCV21) 2022 04/10/2005, 05/30/2004, 03/14/2004, Additional history exists Pap Smear 2024 DTaP,Tdap,and Td Vaccines (7 - Td or Tdap) 05/20/2025 05/20/2015, 03/04/2009, 04/12/2005, Additional history exists COVID-19 Vaccine (4 - 2024- season) 2025 11/12/2021, 02/14/2021, 01/24/2021 Influenza Vaccine (#1) 2025 , 08/24/2020, 09/28/2019 RSV Vaccines (1 - 1-dose 75+ series) 2078 Hepatitis B Vaccines Completed 08/25/2004, 2003, 2003 HIB Vaccines Completed 04/10/2005, 12/2003, 03/14/2004, Additional history exists MMR Vaccines Completed 11/14/2007, 11/11/2004 Varicella Vaccines Completed 11/14/2007, 11/11/2004 IPV Vaccines Completed 03/04/2009, 03/19, 03/11/2004, Additional history exists Hepatitis A Vaccines Completed 05/25/2018, 01/09/2017, 01/09/2017 Meningococcal Vaccine Aged Out 04/13/2022, 015 No longer eligible based on patient's age to complete this topic Medical Devices Implanted Type Area Blade Worker Device Identifier Shelf Expiration Date Model / Serial / Lot [place] Suture Arthroscopy [employer]ivel[employer] Latex Free Biocomposite Vented Closed Eyelet Sterile 15.8 X 3.5mm - [id number] Implanted:Qty: 2 on 02/04/2024 by Preston Lucas DPM at [facility] IMPLANTS Left: Ankle ARTHREX 12/15/2025 [id number] C / / [id number] Insurance UNIDENTIFIED INS ALL OTHER Care Teams Communications Equipment Operator Relationship Specialty Start Date End Date Indio Gray DO [address] [place] [id number] PCP - General Pediatrics 01/14/21
== END 2025-09-20 19:11 | disposition home or self-care (01) ==
LOC: HO.MRI 19:10
PROVIDERS: PCP Family Medicine; Visit Provider Family Medicine
DX: M25.572 Pain in left ankle and joints of left foot (principal); R20.0 Anesthesia of skin
CPT/HCPCS: 72148

== ENCOUNTER → 2025-09-20 19:30 | Outpatient (BNV) | payer BC, OTHER, SELFPAY | PROVIDERS: PCP Family Medicine; Visit Provider Radiology Diagnostic Radiology | DX: E88.2 Lipomatosis, not elsewhere classified (principal) | CPT/HCPCS: 72148 ==